=== PATIENT | female | born 1985 | race Caucasian/White ===

== ENCOUNTER 2024-08-23 08:58 | Emergency (ER) | payer OTHER ==
--- NOTE | 2024-08-23 09:14 | ERPHSYRPT ---
- History of Present Illness Time Seen by Provider: 08/23/24 09:07 Source: patient, family Exam Limitations: no limitations Physician History: Pt had onset of left eye pain after finger trauma from her 4 year old child. Discussed with pt and available family risks and benefits of testing/Tx including flouroscien stain, irrigation, , pain med ( tetracaine) , Antibiotic e mycin ointment and they wish to proceed so these are ordered. Tetanus is UTD within a few years. visual acuity near is 20/20 bilateral . tetracaine anesth used. Ant chamber clear, no FB with double lid eversion affected eye. Globe intact, negative seidels sign. Fundi benign. EOM full. abrasion noted upper left cornea. No drainage. Results discussed with pt and available family. initial pain level 4 pain level after Tx 1 Discussed with pt who is an [employer] precautions on using the tetracaine and risks/benefits and not to use more than 1 day and to return if pain continues and she is responsible enough to take this home for limited use and has the capacity to make this choice. . Timing/Duration: yesterday Associated Symptoms: pain, sensitivity to light, redness Visual Assistive Devices: None Chemical Exposure: No Trauma: Yes Welding Arc/Tanning Bed Exposure: No Allergies/Adverse Reactions: cephalexin [From Keflex] Adverse Reaction (Verified 08/23/24 09:17) Vomiting Home Medications: Dextromethorphan HBr/Bupropion [Auvelity ER 45-105 mg Tablet] 1 each PO DAILY 08/23/24 [History] Lisdexamfetamine Dimesylate [Vyvanse] 1 tab PO DAILY 08/23/24 [History] - Review of Systems Constitutional: No Fever, No Chills Eyes: Eye Pain, Tearing Ears, Nose, & Throat: No Symptoms Respiratory: No Cough, No Dyspnea Cardiac: No Chest Pain, No Edema, No Syncope Abdominal/Gastrointestinal: No Abdominal Pain, No Nausea, No Vomiting, No Diarrhea Genitourinary Symptoms: No Dysuria Musculoskeletal: No Back Pain, No Neck Pain Skin: No Rash Neurological: No Dizziness, No Focal Weakness, No Sensory Changes Psychological: No Symptoms Endocrine: No Symptoms Hematologic/Lymphatic: No Symptoms Immunological/Allergic: No Symptoms All Other Systems: Reviewed and Negative - Past Medical History Pertinent Past Medical History: No - Nursing Vital Signs Nursing Vital Signs: Initial Vital Signs Temperature 98.4 F 08/23/24 09:10 Pulse Rate 72 08/23/24 09:10 Respiratory Rate 16 08/23/24 09:10 Blood Pressure 140/95 08/23/24 09:10 O2 Sat by Pulse Oximetry 100 08/23/24 09:10 Pain Scale Pain Intensity 4 - Physical Exam General Appearance: no apparent distress Vision Acuity Right Eye: 20/20 Vision Acuity Left Eye: 20/20 Eye Exam: left eye: corneal abrasion, erythema, bilateral eye: PERRL Ears, Nose, Throat Exam: normal ENT inspection, pharynx normal, moist mucous membranes Neck Exam: normal inspection, non-tender, supple, full range of motion Respiratory Exam: normal breath sounds, lungs clear, airway intact Cardiovascular Exam: regular rate/rhythm, normal heart sounds Gastrointestinal Exam: soft Extremity Exam: normal inspection, normal range of motion Neurologic: alert, oriented x 3, cooperative, 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, normal mood/affect, nml cerebellar function, nml station & gait Skin Exam: normal color, warm, dry SpO2 Interpretation: normal SpO2: 100 O2 Delivery: Room Air - Course Nursing assessment & vital signs reviewed: Yes Ordered Tests: Medication Summary Discontinued Medications Generic Name Dose Route Start Last Admin Trade Name Jose Luisq PRN Reason Stop Dose Admin Fluorescein Sodium Confirm 08/23/24 09:20 Fluorescein Sodium 1 Mg/Strip Strip Administered 08/23/24 09:21 Dose 1 mg OP .STK-MED ONE Irrigating Solution Confirm 08/23/24 09:26 Sod Borate/Boric Ac/Water/Nacl 118 Ml Irrig.Soln Administered 08/23/24 09:27 Dose 118 ml OP .STK-MED ONE Tetracaine HCl Confirm 08/23/24 09:19 Tetracaine Hcl/Pf 4 Ml Bottle Administered 08/23/24 09:20 Dose 4 ml OP .STK-MED ONE - Progress Progress: improved, re-examined Counseled pt/family regarding: diagnosis, need for follow-up Medical Desision Making - Discussion of managment Reviewed:: Test results, Need for additional workup - Diagnostic Testing Diagnostic test were ordered, analyzed, and reviewed by me: No - Risk of complications The pt has a mod risk of morbidity or mortality based on: Need for prescription drug management - Departure Departure Disposition: Home Clinical Impression: Corneal abrasion Condition: Good Critical Care Time: No Instructions: Corneal Abrasion ED Additional Instructions: followup your blood pressure with your Dr. as this was a little elevated but may have been pain related. ALso see your eye Dr. to recheck healing of the abrasion on your cornea. You may use the tetracaine today and this evening if needed but it should not be required after that and return if pain continues. We have sent a prescription for e mycin eye ointment to use for the next week until healed. Return meantime if any other concerns. Prescriptions: Erythromycin Base 3.5 gm [Erythromycin 3.5 GM OPHTH.] 3.5 gm OP QID #1 cartridge
[2024-08-23] MEDS ORDERED: TETRACAINE 0.5% STERI-UNIT SOL OP ONE (09:19)
[2024-08-23] MEDS ORDERED: Fluor-I-Strip/Ful-Flo OP ONE (09:20)
[2024-08-23 09:25] VITALS: RESP 16; TEMP 98.4
[2024-08-23] MEDS ORDERED: COLLYRIUM/ EYE RELIEF EYE WASH SOLUTION OP ONE (09:26)
[2024-08-23 09:47] VITALS: BP 101/61; PULSE 75; O2SAT 98
== END 2024-08-23 09:51 | disposition home or self-care (01) ==
LOC: ED 08:58
DX: S05.02XA Injury of conjunctiva and corneal abrasion without foreign body, left eye, initial encounter (principal); W50.0XXA Accidental hit or strike by another person, initial encounter; Z79.899 Other long term (current) drug therapy
CPT/HCPCS: 99283